=== PATIENT | male | born 1970 | race Caucasian/White ===

== ENCOUNTER → 2018-03-29 | Outpatient (CLI) | payer BC ==
[~2018-03-29] MED LIST: ASPIRIN EC81 M1 PO; BENTYL 10 MG CA10 M1 PO; CARVEDILOL12.5 MG PO; CRESTOR PO; CRESTOR10 MG PO; EFFIENT10 MG PO; LOPRESSOR25 PO; PLAVIX 75 MG TA75 M1 PO; PRILOSEC 20 MG20 MG PO; PRINIVIL5 MG PO
[2018-03-29 16:48] LABS: ABSOLUTE BASOPHILS 0.1 thou/uL (0.0-0.2); ABSOLUTE EOSINOPHILS 0.1 thou/uL (0.0-0.7); ABSOLUTE LYMPHOCYTES 2.8 thou/uL (0.8-5.3); ABSOLUTE MONOCYTES 0.7 thou/uL (0.0-1.2); ABSOLUTE NEUTROPHILS 5.2 thou/uL (1.6-8.1); BASOPHILS 0.9 %; EOSINOPHILS 1.3 %; HEMATOCRIT 46.6 % (42.0-52.0); HEMOGLOBIN 15.9 gm/dL (14.0-18.0); LYMPHOCYTES 31.3 %; MCHC 34.1 g/dL (28.0-37.0); MCV 93.9 fL (80.0-100.0); MONOCYTES 7.9 %; NUCLEATED RBCS 0 /100WBC; PLATELET COUNT* 327 thou/uL (150-400); POLYS 58.6 %; RBC 4.97 mil/uL (4.50-6.00); RDW-CV 12.4 % (10.5-14.5); WBC 8.9 thou/uL (4.0-11.0)
[2018-03-29 17:04] LABS: ALBUMIN 4.1 g/dL (3.4-5.0); ALKALINE PHOSPHATASE 76 U/L (46-116); ANION GAP 5 mmol/L (7-16); BUN 15 mg/dL (7-18); CALCIUM 8.9 mg/dL (8.5-10.1); CHLORIDE 101 mmol/L (98-107); CHOLESTEROL 260 mg/dL (<200); CO2 29 mmol/L (21-32); DIRECT BILIRUBIN 0.1 mg/dL (<0.1-0.3); GLUCOSE 89 mg/dL (70-99); HDL CHOLESTEROL 37 mg/dL (>40); LDL CHOLESTEROL 173 mg/dL (<100); POTASSIUM 3.7 mmol/L (3.5-5.1); SERUM ASSESSMENT Clear; SGOT 16 U/L (15-37); SGPT 18 U/L (30-65); SODIUM 135 mmol/L (136-145); TOTAL BILIRUBIN 0.9 mg/dL (<0.1-1.0); TOTAL PROTEIN 7.7 g/dL (6.4-8.2); TRIGLYCERIDE 254 mg/dL (<150); VLDL 51 mg/dL (<40)
== END ==
LOC: M.LAB 16:30
PROVIDERS: Internal Medicine Cardiovascular Disease
DX: I25.10 Atherosclerotic heart disease of native coronary artery without angina pectoris (principal); E78.5 Hyperlipidemia, unspecified; I10 Essential (primary) hypertension

== ENCOUNTER → 2019-04-06 | Outpatient (CLI) | payer BC ==
[2019-04-06 17:32] LABS: HEMATOCRIT 44.3 % (42.0-52.0); HEMOGLOBIN 15.3 gm/dL (14.0-18.0); MCHC 34.5 g/dL (28.0-37.0); MCV 92.8 fL (80.0-100.0); RBC 4.78 mil/uL (4.50-6.00); RDW-CV 12.8 % (10.5-14.5); WBC 8.2 thou/uL (4.0-11.0)
[2019-04-06 17:47] LABS: ALKALINE PHOSPHATASE 75 U/L (46-116); ANION GAP 6 mmol/L (7-16); BUN 12 mg/dL (7-18); CALCIUM 9.1 mg/dL (8.5-10.1); CHLORIDE 104 mmol/L (98-107); CHOLESTEROL 201 mg/dL (<200); CO2 31 mmol/L (21-32); CREATININE 0.9 mg/dL (0.6-1.3); GLUCOSE 91 mg/dL (70-99); HDL CHOLESTEROL 35 mg/dL (>40); LDL CHOLESTEROL 136 mg/dL (<100); POTASSIUM 4.4 mmol/L (3.5-5.1); SGOT 18 U/L (15-37); SGPT 25 U/L (30-65); SODIUM 141 mmol/L (136-145); TC:HDL 5.7 Ratio (Not establshd); TOTAL BILIRUBIN 0.7 mg/dL (<0.1-1.0); TOTAL PROTEIN 7.9 g/dL (6.4-8.2); TRIGLYCERIDE 153 mg/dL (<150); VLDL 31 mg/dL (<40)
[2019-04-06 17:49] LABS: SERUM ASSESSMENT Clear
== END ==
LOC: M.LAB 17:15
PROVIDERS: Registered Nurse
DX: E78.5 Hyperlipidemia, unspecified (principal); R53.83 Other fatigue; I25.5 Ischemic cardiomyopathy

== ENCOUNTER → 2019-05-10 | Outpatient (CLI) | payer BC ==
--- NOTE | 2019-05-10 16:07 | CARDNUC ---
[place] [address] CARDIAC NUCLEAR IMAGING REPORT Name: ADELE PICKENS Room: [facility]#: [id number] Admission: 05/10/19 Attend Phys: Marianne Huang Discharge: Date of : 66 Date of Service: 05/10/19 1606 Report #: [id number] THIS REPORT FOR: //name// ADDENDUM APPROVED REPORT Study performed: 05/10/2019 14:29:40 Exam: Nuclear Stress Test Indication: Chest pain Patient Location: Out-Patient Stress Tech: Fatou Gilbert Stress Nurse: Marjorie Lucio RN Ht: 5 ft 5 in Wt: 165 lbs BSA: 1.82 m2 BMI: 27.45 Medical History Medical History: cad mi, hyperlipidemia, hypertension Medications: carvedilol, plavix, crestor, ntg Allergies: nkda Cardiac Risk Factors: age, hyperlipidemia, hypertension, former tobacco Previous Cardiac Procedures: pci without stent Exercise History: Physically active Meds Held (24 hrs): carvedilol Stress Test Details Stress Test: Exercise stress testing was performed using a Wilian protocol. HR Resting HR: 85 bpm Max Heart Rate (APMHR): 169 bpm Max HR Achieved: 158 bpm Target HR (85% APMHR): 143 bpm % of APMHR: 93 Recovery HR: 94 bpm BP Resting BP: 152/94 mmHg Max BP: 177/92 mmHg ECG Resting ECG: Sinus Rhythm Stress ECG: Sinus Tachycardia ST Change: None Arrhythmia: None Recovery ECG: [place] [address] CARDIAC NUCLEAR IMAGING REPORT Name: ADELE PICKENS Room: [facility]#: [id number] Admission: 05/10/19 Attend Phys: Marianne Huang Discharge: Date of : 66 Date of Service: 05/10/19 1606 Report #: [id number] Change: None Recovery Arrhythmia: None Clinical Reason for Termination: leg cramps Exercise duration: 11 min 57 sec Exercise capacity: 13.48 METs Functional Aerobic Impairment 93% The patient exhibited excellent exercise tolerance. He had no symptoms to suggest stress-induced ischemia. Stress ECG Conclusion The baseline 12-lead EKG shows sinus rhythm without significant ST segment abnormalities. EKGs obtained during and post exercise showed sinus rhythm and sinus tachycardia with no significant ST or T wave changes when compared baseline. There were no stress-induced arrhythmias. NM EXAM: Myocardial Perfusion REST/STRESS Imaging Protocol: Rest Tc-99m/Stress Tc-99m 1 day Resting Data Rest SPECT myocardial perfusion imaging was performed in supine position 30 minutes following the intravenous injection of 10.4 mCi of Tc-99m Sestamibi. Time of rest injection: 13:05 The images were gated to evaluate regional wall motion and calculate left ventricular ejection fraction. Administration Route: IV Administration Site: Right Hand Exercise Stress At peak stress, the patient was injected intravenously with 36.0mCi of Time of stress injection: 14:30 Administration Route: IV Administration Site: Right Hand Heart Rate at time of stress injection: 158 bpm. Patient continued to exercise for 1 minute(s). Gated Stress SPECT was performed 30 minutes after stress injection. The images were gated to evaluate regional wall motion and calculate left ventricular ejection fraction. Prone imaging [place] [address] CARDIAC NUCLEAR IMAGING REPORT Name: ADELE PICKENS Room: [facility]#: [id number] Admission: 05/10/19 Attend Phys: Marianne Huang Discharge: Date of : 66 Date of Service: 05/10/19 1606 Report #: [id number] Study: Good Artifact: No artifact Study Data At rest, the left ventricular ejection fraction was 60%.. Post stress, the left ventricular ejection was 50%.. TID = 1.02. Perfusion There is a moderate size severe in intensity defect involving the basal to distal inferior wall that appears fixed consistent with prior infarct. No other significant fixed or reversible defects were identified. Wall Motion Mild basal to mid inferior wall hypokinesis. Nuclear Conclusion ECG Findings: negative for ischemia Clinical Findings: negative for ischemia Nuclear Findings: negative for ischemia Exercise Capacity: normal Left Ventricular Function: preserved Myocardial perfusion images show evidence of prior inferior wall infarct. There is no evidence of ongoing ischemia. Global LV systolic function is well-preserved with only mild hypokinesis noted basal mid inferior wall. This is not a high risk study. <Conclusion> The baseline 12-lead EKG shows sinus rhythm without significant ST segment abnormalities. EKGs obtained during and post exercise showed sinus rhythm and sinus tachycardia with no significant ST or T wave changes when compared baseline. There were no stress-induced arrhythmias. <ELECTRONICALLY SIGNED> By: Daniel Love MD, FACC 05/10/19 1606 1606 1606 Daniel Love MD, FACC /INF
== END ==
LOC: M.NUC 04-10 09:24
DX: R07.9 Chest pain, unspecified (principal); I25.10 Atherosclerotic heart disease of native coronary artery without angina pectoris; E78.5 Hyperlipidemia, unspecified; I10 Essential (primary) hypertension

== ENCOUNTER 2019-06-20 12:34 | Observation (INO) | payer BC ==
[~2019-06-20] VITALS: Ht 165.1 cm; Wt 77.2 kg
[2019-06-20] VITALS (15 sets, daily range): BP systolic 110–170; BP diastolic 65–101
[2019-06-20] MEDS ORDERED: CRESTOR20 MG PO (12:42)
[2019-06-20 12:54] LABS: ABSOLUTE BASOPHILS 0.1 thou/uL (0.0-0.2); ABSOLUTE EOSINOPHILS 0.1 thou/uL (0.0-0.7); ABSOLUTE LYMPHOCYTES 2.3 thou/uL (0.8-5.3); ABSOLUTE MONOCYTES 0.6 thou/uL (0.0-1.2); ABSOLUTE NEUTROPHILS 5.2 thou/uL (1.6-8.1); BASOPHILS 0.9 %; EOSINOPHILS 1.6 %; HEMATOCRIT 43.4 % (42.0-52.0); HEMOGLOBIN 15.2 gm/dL (14.0-18.0); LYMPHOCYTES 27.2 %; MCH 32.3 pg (26.0-34.0); MCV 92.3 fL (80.0-100.0); MONOCYTES 6.9 %; MPV 7.9 fl. (7.2-11.1); NUCLEATED RBCS 0 /100WBC; PLATELET COUNT* 293 thou/uL (150-400); POLYS 63.4 %; RDW-CV 12.1 % (10.5-14.5); WBC 8.3 thou/uL (4.0-11.0)
[2019-06-20 13:08] LABS: CALCIUM 9.2 mg/dL (8.5-10.1); CREATININE 0.9 mg/dL (0.6-1.3); POTASSIUM 3.9 mmol/L (3.5-5.1)
[2019-06-20 13:18] LABS: MAGNESIUM 2.1 mg/dL (1.8-2.4); TOTAL BILIRUBIN 0.6 mg/dL (<0.1-1.0); TOTAL PROTEIN 7.4 g/dL (6.4-8.2)
--- NOTE | 2019-06-20 14:57 | EKG ---
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: : 1970 Requested By: Jacques Choudhary Order Number: [id number] MD: Eros Jorgensen Measurements Intervals [place] Rate: 74 P: 21 AK: 134 QRS: 88 QRSD: 93 T: -16 QT: 388 QTc: 431 Interpretive Statements Sinus rhythm Borderline T abnormalities, inferior leads Compared to ECG 01/13/2016 10:24:42 T-wave abnormality now present Electronically Signed On 06-20-2019 14:57:13 ART PSYCHOTHERAPIST by Eros Jorgensen [email or web address] <ELECTRONICALLY SIGNED> By: Eros Jorgensen MD, [facility] 06/20/19 1457 1239 1239 Eros Jorgensen MD, FAC /EPI
--- NOTE | 2019-06-20 17:36 | CARD ---
[facility] [address] [place] [address] CARDIAC CATH REPORT Name: ADELE PICKENS Room: [address] IN ..#: [id number] Admission: 06/20/19 Attend Phys: Samia Holman Discharge: Date of : 66 Report #: [id number] THIS REPORT FOR: //name// APPROVED REPORT Study performed: 06/20/2019 15:14:03 Patient Details Patient Status: In-Patient Room #: The patient is a 49 year-old male Event Personnel Eros Jorgensen Communications Department Head, Ana Betancourt RN Broom Bundler, Shira Roper RTR Scrub, Edmond Baez LOOP TACKER Monitor Procedures Performed Left Heart Cath w/or w/o Coronaries [id number] [facility] , Left Ventriculogram Indication Abnormal ECG, Chest pain Risk Factors Hypercholesterolemia Previous Procedures/Diagnoses Previous [place] Admission/Lab Medications/Medications given during procedure Heparin Unfract. Procedure Narrative The patient was brought urgently to the Cardiac Catheterization Laboratory and was prepped and draped in a sterile manner. The right wrist was infiltrated with 1% Lidocaine subcutaneous anesthesia. A Slender Glidesheath sheath was inserted into the RRA. Coronary angiography was performed using coronary diagnostic catheters. The right coronary system was accessed and visualized with a JR4 catheter. The left coronary system was accessed and visualized with a JL4 catheter. The left ventricle was accessed and visualized with a PIG catheter. Left ventricular/Aortic Valve gradient assessed via catheter pullback. Left ventriculogram was performed in FAJARDO projection. Closure device was deployed with a 6 Fr Vasc-Band Reg 24cm. The patient tolerated the procedure well and there were no complications associated with the procedure. [place] [id number] CARDIAC CATH REPORT Name: ADELE PICKENS Room: [address] IN [facility]#: [id number] Admission: 06/20/19 Attend Phys: Samia Holman Discharge: Date of : 66 Report #: [id number] hematoma. Intraoperative Conscious Sedation Fentanyl 25 mcg Fluoro Time: 6.0 minutes Dose: DAP 20609 cGycm2 867 mGy Contrast Type and Amount: Visipaque 100 ml Coronary Angiography The patient's coronary anatomy is right dominant. Diagnostic Cath Left Main 30% proximal stenosis noted LAD proximal aneurysmal dilatation. 30% mid stenosis noted Circumflex 0% stenosis Right Coronary Aneurysmal dilatation noted. 30% proximal and 50% distal stenosis noted Ramus 0% stenosis noted Left Ventriculography The left ventricular ejection fraction is estimated to be 45-50%. Left ventricular wall motion abnormalities are present. There is 1+ mitral insufficiency. distal inferior hypokinesis noted Hemodynamics The aortic pressure is 107/75 mmHg with a mean of 91 mmHg. The left ventricular pressure is 127/5 mmHg with a mean of mmHg. The left ventricular end diastolic pressure is 6 mmHg. There was no gradient across the aortic valve upon pullback. Pullback from the left ventricle to the aorta revealed no gradient across the aortic valve. Conclusion 1. 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 50% stenosis noted of the distal rca 3. LVEF 45-50% Recommendations [place] [id number] CARDIAC CATH REPORT Name: ADELE PICKENS Room: [address] IN [facility]#: [id number] Admission: 06/20/19 Attend Phys: Samia Holman Discharge: Date of : 66 Report #: [id number] Medications Administered Clopidogrel <ELECTRONICALLY SIGNED> By: Eros Jorgensen MD, [facility] 06/20/19 1735 173 1735Eros Jorgensen MD, FACC /INF
--- NOTE | 2019-06-20 18:46 | NUR ---
PT ADMITTED TO ROOM 224 VIA BED FROM SAFETY PERSON AT APPROXIMATELY 1700. REPORT RECEIVED FROM JOSE ALFREDO CABALLERO. ADMISSION ASSESSMENT AND HISTORY COMPLETED-REFER TO CHARTING. PT HAD RIGHT RADIAL CATH- CATH SITE- IS CLEAN, DRIED DRAINAGE NOTED, NO HEMATOMA NOTED. RADSTAT BAND IN PLACE. PT INSTRUCTED ON IMMOBOLIZATION AND ELEVATION-COMMUNICATES UNDERSTANDING. A&0X4, DENIES ANY PAIN OR SHORTNESS OF BREATH AT THIS TIME. TRACING SR ON THE WHIPPED TOPPING FINISHER. ON RA SAT UPPER 90'S. PT UP SBA TO BATHROOM. IVF. POST CARDIAC CATH ASSESSMENT AND VITALS CHARTED. HOME MEDICATIONS RECONCILED. FALL AGREEMENT SIGNED. MEDICATIONS PER SEP. PT REPOSITIONS SELF. HOURLY ROUNDING OBSERVED. BED IN LOW POSITION. CALL LIGHT WITHIN REACH. WILL CONTINUE PLAN OF CARE.
[2019-06-21] VITALS: BP 90/49
[2019-06-21 04:00] VITALS: BP 81/57
--- NOTE | 2019-06-21 04:42 | NUR ---
PT CARE ASSUMED AT 1930. SAT MAINTAINED IN RA. ALERT AND ORIENTED X4. DENIES PAIN AND SOB. CALL LIGHT WITHIN REACH AND BED IN LOW POSITION. CATH SITE D/I. HOURLY ROUNDING DONE FOR PT SAFETY.
[2019-06-21 07:30] VITALS: BP 112/63
--- NOTE | 2019-06-21 09:23 | NUR ---
ASSUMED PT CARE AT 0800, AOX4, UP AD DANYEL, O2 SAT 90'S RA. TRACING SINUS ALFREDO ON TELE. PT DENIES PAIN. CATH SITE INTACT. CARDIOLOGY SAY OK TO D/C. HOURLY ROUNDING, CALL LIGHT WITHIN REACH, WILL CONTINUE TO MONITOR.
[2019-06-21 10:03] VITALS: BP 112/63
[2019-06-21] MEDS ORDERED: NITROSTAT0.4 M1 SUBLING (10:08)
--- NOTE | 2019-06-21 11:43 | NUR ---
MET WITH PT AND TO DISCUSS HOME SITUATION/DC PLANNING. PT LIVES WITH , IS INDEPENDENT AND ACTIVE.. USES NO EQUIPMENT. PLANS TO RETURN HOME. NO NEEDS ID'D
[2019-06-21] MEDS ORDERED: VASCEPA1 GM PO (11:51)
[2019-06-21 12:24] VITALS: BP 110/62
--- NOTE | 2019-06-21 14:05 | NUR ---
DISCHARGED PLAN DISCUSSED WITH THE PT. MEDICATION SCRIPT GIVEN. REMINDED TO FOLLOW UP WITH CARDILOGY. IV, TELE REMOVED. LEFT THE UNIT AT 1325.
--- NOTE | 2019-06-22 16:21 | CON ---
[facility] [address] [place] [address] CONSULTATION Name: ADELE PICKENS Room: [address] Rocio Sarkar#: [id number] Admission: 06/20/19 Attend Phys: Samia Holman Discharge: 06/21/19 Date of : 66 Report #: [id number] THIS REPORT FOR: //name// CC: Ryan Esposito DO César Mcghee DATE OF SERVICE: 06/20/2019 HISTORY OF PRESENT ILLNESS: The patient is a 49-year-old white male who I was asked to see in the Emergency Room today after he complained of chest pain. The patient has a previous history of myocardial infarction back in 2009. He was seen by Dr. Martinez at that time and apparently had balloon angioplasty only, but no stent was placed. He has been treated medically since that time. He actually had a nuclear stress test just done in 04/2019 that showed an ejection fraction of 50% with an inferior fixed defect, but no reversibility suggesting previous myocardial infarction. The patient stays fairly active and was doing well until about 5 days ago. He has been having intermittent pressure in his chest. It makes him lightheaded and warm. It tends to come and go. Today, he had a prolonged episode and decided to come to the Emergency Room. He denied the pain related to food, coughing. He has had no blood in stool. Denied trauma to his chest. He has had some shoulder pain recently. He denies exertional dyspnea, palpitations or syncope. PAST MEDICAL HISTORY: He has had shoulder surgery, hernia repair, hypertension, hyperlipidemia. MEDICATIONS: Include Coreg, Crestor, Plavix. ALLERGIES: He has no known drug allergies. FAMILY HISTORY: His mom had heart disease. SOCIAL HISTORY: He is . He and his live in [place]. 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 He quit smoking years ago, rarely drinks alcohol. REVIEW OF SYSTEMS: No history of stroke, asthma, peptic ulcer disease, liver disease, kidney disease, cancer, psychiatric illness, chronic skin condition. PHYSICAL EXAMINATION: GENERAL: Revealed a middle-aged male, appearing in no acute distress. VITAL SIGNS: Blood pressure 130/80, pulse 70, he is afebrile. HEENT: He was anicteric. Conjunctivae pink. Mucous membranes moist. NECK: Veins nondistended. No carotid bruits. CHEST: Clear to auscultation. CARDIOVASCULAR: [place] [address] CONSULTATION Name: ADELE PICKENS Room: [address] Rocio Sarkar#: [id number] Admission: 06/20/19 Attend Phys: Samia Holman Discharge: 06/21/19 Date of : 66 Report #: [id number] ABDOMEN: Soft. EXTREMITIES: Had no edema. SKIN: Warm and dry. NEUROLOGIC: Nonfocal. RADIOLOGICAL DATA: ECG shows sinus rhythm with small inferior Q-waves. His workup in the Emergency Room today, he had portable chest x-ray that showed normal heart size, clear lung teague. LABORATORY WORK: Sodium 141, creatinine 0.9. Liver function studies were normal. Troponin 0.06. BNP 116. In March, his cholesterol was 201, triglyceride 153, HDL 35, LDL 136. TSH is 2.0. White blood cell count 8.3, hemoglobin 15.2. IMPRESSION AND RECOMMENDATIONS: 1. Unstable angina. Previous myocardial infarction. Recommend cardiac catheterization. 2. Hypertension. The patient has been on a beta-fortunato. 3. Hyperlipidemia. The patient has been on Crestor. 4. Previous tobacco abuse. 5. Left shoulder pain. The patient might require surgery. <ELECTRONICALLY SIGNED> By: Eros Jorgensen MD, FACC 06/22/19 1621 1528 [id number] Jorgensen MD, FACC /nt
== END 2019-06-21 13:24 | disposition home or self-care (01) ==
LOC: M.ERS 12:34 → M.2W 14:13 → M.TBA-ER 14:13 → M.2W 17:16
PROVIDERS: Emergency Medicine Emergency Medical Services; ADMIT Internal Medicine
DX: I25.110 Atherosclerotic heart disease of native coronary artery with unstable angina pectoris (principal); I10 Essential (primary) hypertension; I25.2 Old myocardial infarction; E78.5 Hyperlipidemia, unspecified; Z87.891 Personal history of nicotine dependence; Z79.01 Long term (current) use of anticoagulants; Z79.899 Other long term (current) drug therapy; M25.512 Pain in left shoulder; Z23 Encounter for immunization

== ENCOUNTER 2020-03-18 09:56 | Emergency (ER) | payer BC ==
[~2020-03-18] VITALS: Ht 165.1 cm; Wt 72.6 kg
[~2020-03-18 09:56] MED LIST changes: +CRESTOR20 MG PO; +NITROSTAT0.4 M1 SUBLING; +VASCEPA1 GM PO
[2020-03-18] MEDS ORDERED: ZPAK PO ×2 (11:05→11:25)
[2020-03-18] MEDS ORDERED: PREDNISONE 20 M20 MG PO (11:05)
[2020-03-18] MEDS ORDERED: TESSALON PERLE100 MG PO (11:05)
[2020-03-18] MEDS ORDERED: PROAIR HFA8.5 GM INH (11:05)
[2020-03-18] MEDS ORDERED: APAP W/CODEINE1 TA2 PO (11:26)
[2020-03-18 11:48] VITALS: BP 124/70
== END 2020-03-18 11:49 | disposition home or self-care (01) ==
LOC: M.ERS 09:56
DX: J18.9 Pneumonia, unspecified organism (principal); Z20.828 Contact with and (suspected) exposure to other viral communicable diseases; I25.2 Old myocardial infarction; Z79.899 Other long term (current) drug therapy

== ENCOUNTER → 2020-11-10 | Outpatient (CLI) | payer BC ==
[~2020-11-10] MED LIST changes: +APAP W/CODEINE1 TA2 PO; +PREDNISONE 20 M20 MG PO; +PROAIR HFA8.5 GM INH; +TESSALON PERLE100 MG PO; +ZPAK PO
[2020-11-10 15:41] LABS: ALBUMIN 4.1 g/dL (3.4-5.0); ALKALINE PHOSPHATASE 88 U/L (46-116); ANION GAP 4 mmol/L (7-16); BUN 12 mg/dL (7-18); CALCIUM 8.8 mg/dL (8.5-10.1); CHLORIDE 103 mmol/L (98-107); CHOLESTEROL 250 mg/dL (<200); CO2 32 mmol/L (21-32); CREATININE 0.9 mg/dL (0.6-1.3); GLUCOSE 88 mg/dL (70-99); HDL CHOLESTEROL 43 mg/dL (>40); LDL CHOLESTEROL 162 mg/dL (<100); SGOT 20 U/L (15-37); SGPT 25 U/L (30-65); SODIUM 139 mmol/L (136-145); TC:HDL 5.8 Ratio (Not establshd); TOTAL BILIRUBIN 0.6 mg/dL (<0.1-1.0); TOTAL PROTEIN 7.7 g/dL (6.4-8.2); TRIGLYCERIDE 225 mg/dL (<150); VLDL 45 mg/dL (<40)
[2020-11-10 15:51] LABS: SERUM ASSESSMENT Clear
== END | disposition home or self-care (01) ==
LOC: M.LAB 15:03
PROVIDERS: ATTEND Internal Medicine Cardiovascular Disease
DX: I10 Essential (primary) hypertension (principal); I25.10 Atherosclerotic heart disease of native coronary artery without angina pectoris; E78.5 Hyperlipidemia, unspecified